=== PATIENT | female | born 1965 | race Caucasian/White ===

== ENCOUNTER 2023-01-18 08:49 | Emergency (ER) | payer OTHER, SELFPAY ==
[2023-01-18 09:14] VITALS: BP 182/101; PULSE 67; RESP 18; TEMP 36.9; O2SAT 98; BMI 23.3
--- NOTE | 2023-01-18 10:19 | ED_ITS ---
HPI - Dental/Oral General: Chief complaint: Dental/Oral Stated complaint: tooth infection Time Seen by Provider: 01/18/23 08:51 History of Present Illness: Patient is a 57-year-old female comes to the ED with dental pain. Symptoms started over 2 weeks ago and patient has seen her dentist and was put on clindamycin. She has been taking clindamycin now for 3 days. Her dental pain is in her top front left incisor. She rates her pain as moderate to severe. She has been taking ibuprofen at home to help with pain. Denies any other symptoms. Associated symptoms: Denies fever(s) or odynophagia Review of Systems Const: Denies: fever(s), chills or fatigue Eyes: Denies: change in vision or eye discomfort ENMT: Reports: dental pain; Denies: throat pain, odynophagia, nasal discharge or nasal congestion Card: Denies: chest pain, palpitations, edema, swelling of feet/ankles, dys pnea on exertion or orthopnea Resp: Denies: dyspnea, productive cough or non-productive cough GI: Denies: abdominal pain, nausea, vomiting, diarrhea, constipation or hematochezia : Denies: flank pain, dysuria or hematuria Musc: Denies: neck pain, back pain or extremity swelling Skin/Breast: Denies: rash or new lesions Neuro: Denies: headache(s), numbness in extremities or weakness in extremities PFS ED PFSH: Medical History (Updated 01/18/23 @ 10:27 by KRISSY Mejia) No pertinent family history Surgical History (Updated 01/18/23 @ 10:27 by KRISSY Mejia) No pertinent past surgical history Physical Exam Const: COMMON NORMALS: no acute distress, patient oriented x3 and alert HENMT: COMMON NORMALS: normocephalic HEAD & SCALP: normocephalic MOUTH: Normal oral and palatal mucosa present THROAT: posterior oropharynx normal and uvula midline Neck/C-Spine: COMMON NORMALS: supple GENERAL: Yes normal visual inspection Resp: COMMON NORMALS: normal respiratory effort, No retractions, No use of accessory muscles and clear to auscultation bilaterally AUSCULTATION: clear to auscultation bilaterally Cardio: COMMON NORMALS: regular rate, regular rhythm, S1 normal heart sound present, S2 normal heart sound present, No gallops present (Cardio), No clicks present (Cardio), No murmurs present (Cardio) and Peripheral pulses 2+ throughout RATE: regular rate RHYTHM: regular rhythm HEART SOUNDS: S1 normal heart sound present and S2 normal heart sound present PERIPHERAL PULSES: Peripheral pulses 2+ throughout GI: COMMON NORMALS: Normal to inspection, nondistended, normoactive bowel sounds present, Soft to palpation, non-tender and no masses PALPATION: Yes Soft to palpation : COMMON NORMALS: Yes no CVA tenderness BLADDER/KIDNEY EXAM: Yes no CVA tenderness Back/Pelvis: COMMON NORMALS: no CVA tenderness Extremity: COMMON NORMALS: normal to inspection Neuro: COMMON NORMALS: patient oriented x3 SENSORIUM/ORIENTATION: Yes alert GAIT: Yes Normal gait present Skin: GENERAL SKIN EXAM: dry skin Course Vital Signs: Vital signs: Vital Signs Temperature 98.4 F 01/18/23 09:14 Pulse Rate 67 01/18/23 09:14 Respiratory Rate 18 01/18/23 09:14 Blood Pressure 182/101 01/18/23 09:14 Pulse Oximetry 98 01/18/23 09:14 Oxygen Delivery Me thod Room Air 01/18/23 09:14 MDM - Dental/Oral Medical Decision Making Patient is a 57-year-old female comes to the ED with dental pain. Symptoms started over 2 weeks ago and patient has seen her dentist and was put on clindamycin. She has been taking clindamycin now for 3 days. Her dental pain is in her top front left incisor. She rates her pain as moderate to severe. She has been taking ibuprofen at home to help with pain. Denies any other symptoms. Vitals are stable. Exam of patient shows a 57-year-old female in no acute distress. Rest of exam is benign. She was given a shot of antibiotic and pain med here in the ED. She was stable for discharge home and diagnosed with tooth ache. She was told to follow-up with her dentist at her scheduled appoint ment this coming Sunday. Continue taking her previously prescribed antibiotic and take all medications as prescribed. Return to ED precautions given. Patient understood and agreed with plan. Discharge Plan Discharge Patient Disposition: Home Clinical Impression: Toothache Condition: Stable Prescriptions: New ibuprofen 800 mg tablet 800 mg PO Q8H PRN (Reason: pain) Qty: 20 0RF Lidocaine Viscous 2 % solution 1 applic mucous membrane Q8H PRN (Reason: pain) Qty: 100 0RF Discharge Orders: Discharge ED (Routine); Ordered 01/18/23 Ordered By: Bill Rai Referrals: Ara Parker DO [Primary Care Provider] - Discharge Diet: Regular Discharge Activity: Increase activity as tolerated Patient Instructions: Toothache (ED) Activity Restrictions/Additional Instructions: Follow-up with dentist at your next scheduled appointment to have dental pain treated. Take medications as prescribed. Return to the ER or your medical provider if condition worsens. Please read and understand discharge instructions. Thank you for choosing [facility] for your healthcare needs today. Rich you realize this is an emergency room and that we are providing you with a medical screening exam and this may not be complete and all inclusive of all the testing and or work up that you may need to determine your ailment or severity of your illness. It is very important that you follow up as instructed or that you return to the Emergency Department should you have concerns or if your condition changes or worsens in any way. 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
[2023-01-18] MEDS: HYDROcodone-acetaminophen 7.5-325 mg Tablet 1 TAB PO (10:32)
[2023-01-18] MEDS: cefTRIAXone 1,000 MG in water for injection-sterile 2.1 ML 1 MG IM (10:32)
[2023-01-18 10:45] VITALS: BP 182/101; PULSE 67; RESP 18; TEMP 36.9; O2SAT 98
== END 2023-01-18 10:46 | disposition home or self-care (01) ==
PROVIDERS: Emergency Provider Physician Assistant; PCP Family Medicine
DX: K08.89 Other specified disorders of teeth and supporting structures (principal)
CPT/HCPCS: 96372; 99284; J0696